=== PATIENT | female | born 2000 | race Caucasian/White ===

== ENCOUNTER 2020-05-24 12:10 | Emergency (ER) | payer OTHER, BC ==
[~2020-05-24] VITALS: Ht 167.6 cm; Wt 69.4 kg
[2020-05-24 12:15] VITALS: BP 134/82
[2020-05-24] MEDS ORDERED: FLUORESCEIN OPHTHALMIC 1 MG STRIP EACHEYE ONE (12:30)
[2020-05-24] MEDS ORDERED: PROPARACAINE OPHTH 0.5%, 15ML EACHEYE ONE (12:30)
[2020-05-24] MEDS ORDERED: PLEASE ENTER ALLERGIES MC SCH (12:30)
[2020-05-24] MEDS ORDERED: FLUORESCEIN OPHTHALMIC 1 MG STRIP ONE (12:32)
[2020-05-24] MEDS ORDERED: PROPARACAINE OPHTH 0.5%, 15ML ONE (12:32)
--- NOTE | 2020-05-24 13:41 | NUR ---
Patient given discharge instructions and they have confirmed that they understand the instructions. Patient ambulatory with steady gait.
== END 2020-05-24 13:43 | disposition home or self-care (01) ==
LOC: ED 13:31
DX: H10.021 Other mucopurulent conjunctivitis, right eye (principal)
CPT/HCPCS: 99283